=== PATIENT | female | born 1950 | race Caucasian/White ===

== ENCOUNTER 2018-03-17 04:43 | Observation (INO) | payer OTHER, BC ==
[~2018-03-17] VITALS: Ht 154.9 cm; Wt 76.1 kg
[~2018-03-17 04:43] MED LIST: CLONAZEPAM0.5 MG PO; CYANOCOBAL1000 MCG/2 IM; FIORICET,ESG1 TABLET PO; INDOMETHACIN50 MG PO; KLOR-CON M2020 MEQ PO; MEDROL DOSEPAK4 MG PO; MULTI-VITAMIN1 EAC4 PO; PANTOPRAZOLE SO40 MG PO; PAXIL20 MG PO; PERCOCET 5/31 TABLET PO; PHENERGAN PO; PRAVASTATIN SOD10 MG PO; PRILOSEC OTC20 MG PO; PROMETHAZINE HC25 M1 PO; ZYRTEC10 M3 PO
[2018-03-17 05:21] LABS: HEMATOCRIT 43.1 % (36.0-46.0); HEMOGLOBIN 14.4 G/DL (11.9-15.5); MCH 30.8 PG (29.0-34.0); MCHC 33.4 G/DL (30.0-36.0); MCV 92.1 FL (83-99); PLATELET COUNT 217 K/uL (156-360); RBC DIS.WIDTH-CV 13.2 % (11.8-14.6); RBC DIS.WIDTH-SD 44.3 % (39-53); RED BLOOD COUNT 4.68 M/uL (3.80-5.20); WHITE BLOOD COUNT 9.5 K/uL (4.1-10.2)
[2018-03-17 05:36] LABS: ALBUMIN 4.3 g/dL (3.2-4.8); CHLORIDE 90 mEq/L (99-109); POTASSIUM 3.1 mEq/L (3.7-5.4); SODIUM 138 mEq/L (136-147)
[2018-03-17 05:38] LABS: GLUCOSE 127 mg/dL (70-99)
[2018-03-17 05:39] LABS: TOTAL PROTEIN 8.2 g/dL (6.4-8.3)
[2018-03-17 05:40] LABS: TOTAL BILIRUBIN 0.4 mg/dL (0.0-1.0)
[2018-03-17 05:42] LABS: ALKALINE PHOSPHATASE 136 IU/L (3-129); CREATININE 2.4 mg/dL (0.6-1.3); GFR ESTIMATE (CALCULATED) 21 mL/min/
[2018-03-17 05:43] LABS: UREA NITROGEN (BUN) 53 mg/dL (9-23)
[2018-03-17 05:44] LABS: AST (GOT) 29 IU/L (2-34)
[2018-03-17 05:45] LABS: ALT (GPT) 18 IU/L (3-49); LIPASE 19 U/L (1.0-51.0)
[2018-03-17 05:51] LABS: TROP-I INTERPRETATION NEGATIVE; TROPONIN-I 0.01 ng/mL (0.0-0.30)
[2018-03-17 07:29] LABS: APPEARANCE SL.HAZY ((CLEAR)); BILIRUBIN NEGATIVE; BLOOD NEGATIVE; COLOR YELLOW ((YELLOW)); GLUCOSE (STRIP) NEGATIVE; KETONES NEGATIVE; LEUKOCYTES LARGE; NITRITE NEGATIVE; PROTEIN (STRIP) NEGATIVE; SPECIFIC GRAVITY 1.016 (1.000-1.030); UROBILINOGEN 0.2 MG/DL (0.2-1.0)
[2018-03-17 07:37] LABS: BACTERIA RARE /HPF; EPITHELIAL CELLS 2+ /HPF; HYALINE CASTS 0-5 /LPF; MUCUS NONE SEEN /LPF; RED BLOOD CELLS 0-5 /HPF (0-5); UCUL ADDED? YES; WHITE BLOOD CELLS TNTC /HPF (0-5)
[2018-03-17] MEDS ORDERED: CIPROFLOXACIN500 M1 PO (09:26)
[2018-03-17] MEDS ORDERED: RANITIDINE HCL300 MG PO (09:46)
[2018-03-17] MEDS ORDERED: COLCRYS0.6 MG PO (09:46)
[2018-03-17] MEDS ORDERED: ALLOPURINOL100 MG PO (09:46)
[2018-03-17 10:04] VITALS: BP 117/77
[2018-03-17 11:19] VITALS: BP 163/66
[2018-03-17 11:20] VITALS: BP 107/58; BP 131/69
[2018-03-17 15:02] VITALS: BP 140/80
[2018-03-17 17:41] LABS: CHLORIDE 102 MEQ/L (99-109); CREATININE 1.5 MG/DL (0.6-1.3); GFR ESTIMATE (CALCULATED) 36 mL/min/; GLUCOSE 110 mg/dL (70-99); SODIUM 141 MEQ/L (136-147); UREA NITROGEN (BUN) 34 mg/dL (9-23)
[2018-03-17 17:42] LABS: POTASSIUM 3.9 MEQ/L (3.7-5.4)
[2018-03-17 19:45] VITALS: BP 144/67
[2018-03-18 00:46] VITALS: BP 120/64
[2018-03-18 03:50] VITALS: BP 121/69
[2018-03-18 05:31] LABS: MAGNESIUM 2.2 mg/dl (1.3-2.7)
[2018-03-18 06:13] LABS: CHLORIDE 105 MEQ/L (99-109); CREATININE 1.4 MG/DL (0.6-1.3); GFR ESTIMATE (CALCULATED) 40 mL/min/; GLUCOSE 104 mg/dL (70-99); POTASSIUM 3.6 MEQ/L (3.7-5.4); SODIUM 140 MEQ/L (136-147); UREA NITROGEN (BUN) 31 mg/dL (9-23)
[2018-03-18 07:20] VITALS: BP 167/70
== END 2018-03-18 12:30 | disposition home or self-care (01) ==
LOC: EME 04:43 → EDOF 07:46 → 4SOUTH 07:46 → EDOF 07:46 → ENRESERV 07:47 → 4SOUTH 09:41
PROVIDERS: Emergency Medicine; Nurse Practitioner Family; Student in an Organized Health Care Education/Training Program
DX: R42 Dizziness and giddiness (principal); N17.9 Acute kidney failure, unspecified; K91.850 Pouchitis; E86.0 Dehydration; E78.5 Hyperlipidemia, unspecified; E87.6 Hypokalemia; E87.1 Hypo-osmolality and hyponatremia; Z85.038 Personal history of other malignant neoplasm of large intestine; Z93.2 Ileostomy status; Z85.3 Personal history of malignant neoplasm of breast; F32.9 Major depressive disorder, single episode, unspecified; G43.909 Migraine, unspecified, not intractable, without status migrainosus; Z91.040 Latex allergy status
CPT/HCPCS: 70450; 80048; 80048 91; 80053; 81003; 83690; 83735; 84484; 85027; 87086; 93005; 99281; 99285; G0378; J1644; J3480; J7030; J7040